=== PATIENT | male | born 1960 | race Caucasian/White ===

== ENCOUNTER → 2023-08-22 | Outpatient (CLI) | payer OTHER ==
[~2023-08-22] MED LIST: ADVIL LIQUI-GE200 MG PO; ATOR10 PO; ATOR20 PO; Aspir 8181 MG PO; ESCI20 PO; PRAM.125
== END | disposition home or self-care (01) ==
LOC: LAB SHORT 11:30 → LAB 11:30
DX: M54.9 Dorsalgia, unspecified (principal)
CPT/HCPCS: 87086